=== PATIENT | female | born 1985 | race Caucasian/White ===

== ENCOUNTER 2017-01-10 23:04 | Emergency (ER) | payer BC ==
[~2017-01-10] VITALS: Ht 167.6 cm; Wt 60.9 kg
[2017-01-10 23:14] VITALS: BP 112/72
[2017-01-11 00:22] LABS: INFLUENZA B NEGATIVE
[2017-01-11] MEDS ORDERED: TAMIFLU 75MG75 MG PO (00:38)
[2017-01-11 00:58] VITALS: PULSE 70; TEMP 98.3
== END 2017-01-11 00:59 | disposition home or self-care (01) ==
LOC: COL.ER 23:04
PROVIDERS: Emergency Medicine
DX: J10.1 Influenza due to other identified influenza virus with other respiratory manifestations (principal)